=== PATIENT | female | born 1990 | race Two or more races ===

== ENCOUNTER 2020-04-04 15:15 | Inpatient (IN) | payer OTHER ==
[~2020-04-04] VITALS: Ht 167.6 cm; Wt 89.8 kg
[2020-04-16] MEDS ORDERED: FOLIC ACID20 MG PO (14:45)
[2020-04-16] MEDS ORDERED: PRENATAL CAPLE1 EAC1 PO (14:45)
== END 2020-04-19 15:35 | disposition home or self-care (01) | DRG 788 ==
LOC: LDR 04-16 08:34 → OB/GYN 04-16 14:58 → LDR 04-24 15:15
PROVIDERS: ADMIT Obstetrics & Gynecology; ATTEND Obstetrics & Gynecology
PROC: 4A1HXCZ Monitoring of Products of Conception, Cardiac Rate, External Approach (ICD-10-PCS; 2020-04-16)
PROC: 10D00Z1 Extraction of Products of Conception, Low, Open Approach (ICD-10-PCS; principal; 2020-04-16 14:45)
DX: O64.1XX0 Obstructed labor due to breech presentation, not applicable or unspecified (principal); Z3A.39 39 weeks gestation of pregnancy; Z37.0 Single live birth; Z22.330 Carrier of Group B streptococcus